=== PATIENT | female | born 1970 | race Caucasian/White ===

== ENCOUNTER 2018-05-05 16:53 | Emergency (ER) | payer OTHER, BC ==
[~2018-05-05] VITALS: Ht 165.1 cm; Wt 56.3 kg
[2018-05-05] MEDS ORDERED: LIDOCAINE WITH 8.4% SOD BICARB 3 ML DISP.SYRIN. IJ ONE (17:15)
--- NOTE | 2018-05-05 17:25 | PHYS DOC ---
Past History Past Medical History: Depression, GERD Past Surgical History: Tonsillectomy, Other Alcohol Use: Occasionally Drug Use: None Adult General Chief Complaint Chief Complaint: LACERATION/AVULSION HPI HPI 40-year-old female presenting the emergency pertinent today after sustaining a laceration to her left second distal phalanx. She was cutting jann stems when the blade cut her finger. She is a sharp shooting pain in the finger that is nonradiating without alleviating factors. She otherwise is healthy and denies any medical conditions. She is not immunocompromised. Tetanus is out-of-date. Review of systems is negative for any other injuries. ED course: 40-year-old female presenting with laceration to her left second phalanx. inspection shows no foreign bodies or tendon lacerations. We will update the patient's tetanus. The wound is repaired. The patient has been examined and was not found to have an emergency medical condition. The patient was then discharged home in stable condition to follow up with their primary care physician over the next 7 days for suture removal. They were to return if their symptoms worsened or if they were concerned for any reason. They were also instructed to return to the emergency department if they were unable to get the recommended and appropriate follow-up. [id number] discharge instructions and return precautions were given. Patient's questions were answered to their satisfaction. Patient is comfortable with plan. Current Medications Current Medications Current Medications Medications (Trade) Dose Ordered Sig/Shelbi Start Time Stop Time Status Last Admin Dose Admin Lidocaine/Sodium Bicarbonate (Buffered Lidocaine 1%) 6 ml 1X ONCE 05/05/18 17:15 05/05/18 17:16 DC 05/05/18 17:11 6 ML Allergies Allergies Allergies Coded Allergies Type Severity Reaction Last Updated Verified No Known Drug Allergies 05/05/18 No Physical Exam Physical Exam Constitutional: Well developed, well nourished, no acute distress, non-toxic appearance. [] HENT: Normocephalic, atraumatic, bilateral external ears normal, oropharynx moist, no oral exudates, nose normal. [] Eyes: PERRLA, EOMI, conjunctiva normal, no discharge. [] Neck: Normal range of motion, no tenderness, supple, no stridor. [] Cardiovascular:Heart rate regular rhythm, no murmur [] Lungs & Thorax: Bilateral breath sounds clear to auscultation [] Abdomen: Bowel sounds normal, soft, no tenderness, no masses, no pulsatile masses. [] Skin: Warm, dry, no erythema, no rash. [] Back: No tenderness, no CVA tenderness. [] Extremities: 1.5 cm laceration of the volar aspect of her left distal phalanx. No foreign bodies. No tendon injuries. Otherwise neurovascularly intact. Neurologic: Alert and oriented X 3, normal motor function, normal sensory function, no focal deficits noted. [] Psychologic: Affect normal, judgement normal, mood normal. [] Current Patient Data Vital Signs Vital Signs Date Time Temp Pulse Resp B/P (MAP) Pulse Ox O2 Delivery O2 Flow Rate FiO2 05/05/18 16:53 98.1 61 18 98 Room Air EKG EKG [] Radiology/Procedures Radiology/Procedures [] Course & Med Decision Making Course & Med Decision Making Pertinent Labs and Imaging studies reviewed. (See chart for details) [] Dragon Disclaimer Dragon Disclaimer This electronic medical record was generated, in whole or in part, using a voice recognition dictation system. Departure Departure: Impression: Primary Impression: Finger laceration Disposition: 01 HOME, SELF-CARE Condition: STABLE Laceration Repair Lac Repair Indication: []lac Procedure: The patient was placed in the appropriate position and anesthesia around the 1% lidocaine \. The area was then washed with soapy water. The laceration was closed using simple interrupted technique using nonabsorbable sutures. The wound area was then dressed with nonadherent dressing. 6 stitches. Total repaired wound length: 1.5 cm. Other Items: none The patient tolerated the procedure well. Complications: none. CELIA WHITE MD May 05, 2018 17:25
[2018-05-05] MEDS ORDERED: DIPHTH,PERTUSS(ACELL),TET TOX 0.5 ML DISP.SYRIN. VAX IM ONE (17:30)
[2018-05-05] MEDS ORDERED: CEPH-264 PO (18:07)
[2018-05-05 18:20] VITALS: BP 124/73
== END 2018-05-05 18:48 | disposition home or self-care (01) ==
LOC: ER 16:53
DX: S61.211A Laceration without foreign body of left index finger without damage to nail, initial encounter (principal); K21.9 Gastro-esophageal reflux disease without esophagitis; F32.9 Major depressive disorder, single episode, unspecified; W26.8XXA Contact with other sharp object(s), not elsewhere classified, initial encounter; Y93.89 Activity, other specified; Y92.89 Other specified places as the place of occurrence of the external cause; Y99.8 Other external cause status
CPT/HCPCS: 12001; 90471; 90715; 99283-25

== ENCOUNTER 2018-05-08 20:30 | Emergency (ER) | payer BC, OTHER ==
[~2018-05-08] VITALS: Ht 165.1 cm; Wt 56.3 kg
[~2018-05-08 20:30] MED LIST: CEPH-264 PO
[2018-05-08 21:14] VITALS: BP 125/75
--- NOTE | 2018-05-08 21:33 | PHYS DOC ---
Past History Past Medical History: Depression, GERD Past Surgical History: Tonsillectomy, Other Alcohol Use: Occasionally Drug Use: None Adult General Chief Complaint Chief Complaint: WOUND CHECK [facility] HPI Patient is a 48-year-old female who presents with request for recheck of wound. Patient had been seen here a few days ago for laceration repair of her distal thumb. She states that today she noticed some bruising that had developed in the dorsal aspect of her hand at the base of her thumb that she states had not been there before. She denies any injury to this area. She also reports that she has numbness and tingling at the tip of her thumb distal to the injury. She denies any worsening pain or redness around wound. Review of Systems Review of Systems Constitutional: Denies fever or chills [] Respiratory: Denies cough or shortness of breath [] Cardiovascular: No additional information not addressed in HPI [] Integument: Bruising noted to dorsal aspect right hand at base of thumb[] Allergies Allergies Allergies Coded Allergies Type Severity Reaction Last Updated Verified No Known Drug Allergies 05/05/18 No Physical Exam Physical Exam Constitutional: Well developed, well nourished, no acute distress, non-toxic appearance. [] Skin: There is small amount of ecchymosis noted at the base of the right thumb, dorsal aspect of hand. No soft tissue swelling or tenderness to this area. Laceration appears to be healing well with no signs of infection. [] Neurologic: Alert and oriented X 3. [] Current Patient Data Vital Signs Vital Signs Date Time Temp Pulse Resp B/P (MAP) Pulse Ox O2 Delivery O2 Flow Rate FiO2 05/08/18 21:14 98.2 56 18 98 Room Air EKG EKG [] Radiology/Procedures Radiology/Procedures [] Course & Med Decision Making Course & Med Decision Making Pertinent Labs and Imaging studies reviewed. (See chart for details) [] Dragon Disclaimer Dragon Disclaimer This electronic medical record was generated, in whole or in part, using a voice recognition dictation system. Departure Departure: Impression: Primary Impression: Encounter for wound re-check Disposition: 01 HOME, SELF-CARE Condition: STABLE Referrals: PCP,UNKNOWN (PCP) Patient Instructions: Wound Check NITESH BOYER Jr. DO May 08, 2018 21:33
== END 2018-05-08 21:48 | disposition home or self-care (01) ==
LOC: ER 20:30
DX: S60.011D Contusion of right thumb without damage to nail, subsequent encounter (principal); F32.9 Major depressive disorder, single episode, unspecified; K21.9 Gastro-esophageal reflux disease without esophagitis; X58.XXXD Exposure to other specified factors, subsequent encounter
CPT/HCPCS: 99281

== ENCOUNTER 2019-04-05 04:37 | Emergency (ER) | payer OTHER ==
[~2019-04-05] VITALS: Ht 165.1 cm; Wt 59.1 kg
[2019-04-05 05:41] LABS: BILIRUBIN,URINE NEG (NEG); CLARITY,URINE CLEAR; COLOR,URINE YELLOW; GLUCOSE,URINE NEG (NEG); NITRITE,URINE NEG (NEG); UROBILINOGEN,URINE 0.2 mg/dL (0.2 mg/dL)
--- NOTE | 2019-04-05 05:41 | PHYS DOC ---
Past History Past Medical History: Depression, GERD Past Surgical History: Tonsillectomy, Other Additional Past Surgical Histo: uterine ablation Alcohol Use: Occasionally Drug Use: None Adult General Chief Complaint Chief Complaint: ABDOMINAL PAIN HPI HPI Patient is a 48 year old female who presents with complaint of left lower abdominal pain. Patient states that her current episode of pain started early this morning at 0200. She states that she awoke from sleep with sudden severe sharp lower abdominal pain. She notes that she was feeling discomfort in the lower portion of her abdomen earlier this evening before bedtime but noted that this was pressure-like in quality. The patient states that her pain has been recurrent over the past 2-3 months. Notes that she has been experiencing this pain approximately every 3 weeks. Notes that the pain is typically in her left lower abdomen and toward her pelvis. Denies radiation of pain into her back or lower extremity. States that she had associated nausea with her symptoms. Notes that her pain upon wakening was 8 out of 10. States currently it is 3 out of 10. Does note that laying flat or standing straight up while experiencing this pain seems to make it worse and sitting forward seems to help slightly alleviate the pain. Has had history of uterine ablation and has had no recent menstrual period. Has not had any change in stool habits, bloody stools, fever, shortness of breath, or chest pain. Review of Systems Review of Systems Constitutional: Denies fever or chills [] Eyes: Denies change in visual acuity, redness, or eye pain [] HENT: Denies nasal congestion or sore throat [] Respiratory: Denies cough or shortness of breath [] Cardiovascular: Denies chest pain or edema[] GI: Abdominal/pelvic pain, nausea, denies vomiting, bloody stools or diarrhea [] : Denies dysuria or hematuria [] Musculoskeletal: Denies back pain or joint pain [] Integument: Denies rash or skin lesions [] Neurologic: Denies headache, focal weakness or sensory changes [] All other systems were reviewed and found to be within normal limits, except as documented in this note. Allergies Allergies Allergies Coded Allergies Type Severity Reaction Last Updated Verified No Known Drug Allergies 05/05/18 No Physical Exam Physical Exam Constitutional: Alert, afebrile, appears in mild discomfort, vital signs stable. [] HENT: Normocephalic, atraumatic, bilateral external ears normal, oropharynx moist, no oral exudates, nose normal. [] Eyes: PERRLA, EOMI, conjunctiva normal, no discharge. [] Neck: Normal range of motion, no tenderness, supple, no stridor. [] Cardiovascular:Heart rate regular rhythm, no murmur [] Lungs & Thorax: Bilateral breath sounds clear to auscultation [] Abdomen: Bowel sounds normal, soft, minimal left lower quadrant tenderness to palpation near left adnexa, no guarding or rebound tenderness, no masses, no pulsatile masses. [] Skin: Warm, dry, no erythema, no rash. [] Back: No tenderness, no CVA tenderness. [] Extremities: No tenderness, no cyanosis, no clubbing, ROM intact, no edema. [] Neurologic: Alert and oriented X 3, normal motor function, normal sensory function, no focal deficits noted. [] Current Patient Data Vital Signs Vital Signs Date Time Temp Pulse Resp B/P (MAP) Pulse Ox O2 Delivery O2 Flow Rate FiO2 04/05/19 04:42 97.4 56 16 123/70 (87) 99 Room Air Lab Results Laboratory Tests Test 04/05/19 05:20 Urine Collection Type Unknown Urine Color Yellow Urine Clarity Clear Urine pH 6.0 Urine Specific [place] 1.020 Urine Protein Neg Urine Glucose (UA) Neg mg/dL Urine Ketones (Stick) Neg mg/dL Urine Blood Trace Urine Nitrite Neg Urine Bilirubin Neg Urine Urobilinogen Dipstick 0.2 mg/dL Urine Leukocyte Esterase Neg Urine RBC Occ /HPF Urine WBC Occ /HPF Urine Squamous Epithelial Cells Few /LPF Urine Bacteria 0 /HPF EKG EKG Not performed[] Radiology/Procedures Radiology/Procedures Not performed[] Course & Med Decision Making Course & Med Decision Making Pertinent Labs and Imaging studies reviewed. (See chart for details) Abdominal exam reveals no guarding or significant tenderness. Patient does note discomfort which she rates as 3 out of 10. Examination does not appear consistent with an acute abdomen. Urinalysis was ordered which showed no significant signs of infection or significant blood. Spoke patient regarding these findings and offered further workup with blood work and imaging studies in the emergency department to attempt to determine cause of pain symptoms. The patient at this time does not wish to have further testing but states that she would prefer to follow-up with her primary doctor for further evaluation. As abdominal exam is largely unremarkable, I do not feel this to be unreasonable. Recommended follow-up with primary doctor within the next 2 days for reevaluation. Advised return to the emergency department for any worsening symptoms. Patient was understanding and in agreement with treatment plan.[] Dragon Disclaimer Dragon Disclaimer This electronic medical record was generated, in whole or in part, using a voice recognition dictation system. Departure Departure: Impression: Primary Impression: Abdominal pain Disposition: HOME, SELF-CARE Condition: IMPROVED Referrals: NON,STAFF (PCP) Patient Instructions: Abdominal Pain Additional Instructions: Follow-up with your primary doctor in the next 2 days for reevaluation. Return to the emergency department for any worsening symptoms. Problem Qualifiers Primary Impression: Abdominal pain Abdominal location: left lower quadrant Qualified Codes: R10.32 - Left lower quadrant pain ALLISON ARBOLEDA MD Apr 05, 2019 05:41
[2019-04-05 05:42] LABS: BACTERIA,URINE 0 /HPF (0-FEW); RBC,URINE OCC /HPF (0-2); SQUAMOUS EPITHELIAL CELL,UR FEW /LPF; WBC,URINE OCC /HPF (0-4)
[2019-04-05 06:00] VITALS: BP 112/69
== END 2019-04-05 06:00 | disposition home or self-care (01) ==
LOC: ER 04:37
DX: R10.32 Left lower quadrant pain (principal); R11.0 Nausea; K21.9 Gastro-esophageal reflux disease without esophagitis; Z90.89 Acquired absence of other organs
CPT/HCPCS: 81001; 99283